=== PATIENT | female | born 1985 | race African-American/Black ===

== ENCOUNTER 2024-05-08 07:00 | Emergency (ER) | payer OTHER ==
[~2024-05-08] VITALS: Ht 152.4 cm; Wt 104.0 kg
[~2024-05-08 07:00] MED LIST: ALBU05; COLCRYS
[2024-05-08 07:05] VITALS: O2SAT 100
[2024-05-08] MEDS ORDERED: METHYLPREDNISOLONE SOD SUCC 125MG/2ML (ACT-O-VIAL) IV STA (07:09)
[2024-05-08 08:20] VITALS: PULSE 96; RESP 20
[2024-05-08] MEDS: IPRATROPIUM BROMIDE (0.02%) 0.5MG/2.5ML NEB HHN STA (08:20)
[2024-05-08] MEDS: ALBUTEROL (0.083%) 2.5MG/3ML NEB HHN STA (08:20)
[2024-05-08] MEDS ORDERED: ALBU18HF2 IH (09:03)
[2024-05-08] MEDS ORDERED: P50 PO (09:03)
[2024-05-08] MEDS: METHYLPREDNISOLONE SOD SUCC 125MG/2ML (ACT-O-VIAL) IV NR (09:26)
[2024-05-08 09:53] VITALS: BP 118/82; PULSE 108; RESP 18; TEMP 36.8; O2SAT 100
== END 2024-05-08 09:54 | disposition home or self-care (01) ==
LOC: ER 07:39
DX: J45.901 Unspecified asthma with (acute) exacerbation (principal); I10 Essential (primary) hypertension; K21.9 Gastro-esophageal reflux disease without esophagitis; F12.90 Cannabis use, unspecified, uncomplicated; Z90.49 Acquired absence of other specified parts of digestive tract; Z79.899 Other long term (current) drug therapy; Z79.52 Long term (current) use of systemic steroids; Z88.6 Allergy status to analgesic agent
CPT/HCPCS: 81025; 94644; 96374; 99285; J2919; Z7610 ×2; 94640; 94664

== ENCOUNTER 2024-12-25 14:16 | Emergency (ER) | payer OTHER, MEDICAID ==
[~2024-12-25] VITALS: Ht 160 cm; Wt 110.0 kg
[~2024-12-25 14:16] MED LIST changes: +ALBU18HF2 IH; +P50 PO
[2024-12-25 14:25] VITALS: BP 126/90; TEMP 37
[2024-12-25] MEDS ORDERED: PREDNISONE 20MG TABLET PO ONE (14:30)
[2024-12-25] MEDS ORDERED: ALBU18HF2 IH (14:34)
[2024-12-25] MEDS ORDERED: P20 PO (14:34)
[2024-12-25 16:08] VITALS: PULSE 102; RESP 20; O2SAT 97
[2024-12-25] MEDS: IPRATROPIUM/ALBUTEROL 0.5-3(2.5)MG/3ML NEB HHN ONE (16:08)
[2024-12-25] MEDS: PREDNISONE 20MG TABLET PO SCH (16:27)
== END 2024-12-25 14:45 | disposition home or self-care (01) ==
LOC: ER 14:16
DX: J45.901 Unspecified asthma with (acute) exacerbation (principal); I10 Essential (primary) hypertension; R09.81 Nasal congestion; Z88.6 Allergy status to analgesic agent; Z79.52 Long term (current) use of systemic steroids; Z90.49 Acquired absence of other specified parts of digestive tract
CPT/HCPCS: 94640; 93005; 99283; J7512; Z7610 ×3; A4606